=== PATIENT | female | born 1985 | race Caucasian/White ===

== ENCOUNTER 2016-08-21 03:10 | Emergency (ER) | payer SELFPAY ==
[~2016-08-21] VITALS: Ht 162.6 cm; Wt 79.8 kg
--- NOTE | 2016-08-21 03:10 | NUR ---
BIBA TO ER BED 8
[2016-08-21 03:16] VITALS: BP 123/69
--- NOTE | 2016-08-21 03:22 | NUR ---
PT BIB [facility] C/O ETOH,DIZZY, HEAD PAIN S/P AFTER PICKING UP HER FRIEND FROM BATHROOM FLOOR. NO TRAUMA NOTED. PT AMD TO ER BED 7 WITHOUT ASST. VSS, PT STABLE AT THIS TIME. NSR W/O ECT NOTED. PERRLA. RESS E/U. ER MD TO SUMEET, ALL ORDER EXECUTED.
--- NOTE | 2016-08-21 04:09 | NUR ---
ER MD DR REYES AT BEDSIDE.
--- NOTE | 2016-08-21 04:24 | NUR ---
Patient appears to be resting comfortably in bed. Vital Signs within normal limits. Respirations even and unlabored.
--- NOTE | 2016-08-21 05:15 | NUR ---
Patient discharged with v/s stable. Written and verbal after care instructions given and explained. Patient verbalized understanding. Ambulatory with steady gait. All questions addressed prior to discharge. Advised to follow up with PMD.
[2016-08-21 05:19] VITALS: BP 120/70
== END 2016-08-21 05:15 | disposition home or self-care (01) ==
LOC: MED 03:10
DX: F10.129 Alcohol abuse with intoxication, unspecified (principal)
CPT/HCPCS: 81025; 99283